=== PATIENT | female | born 1955 | race Caucasian/White ===

== ENCOUNTER 2018-09-05 10:08 | Outpatient (CLI) | payer MEDICARE, MEDICAID ==
[2018-09-05 10:10] VITALS: BP_SYST 134
== END 2018-09-05 10:34 | disposition home or self-care (01) ==
LOC: ORTHO 10:08
PROVIDERS: ATTEND Nurse Practitioner Family
DX: S42.214A Unspecified nondisplaced fracture of surgical neck of right humerus, initial encounter for closed fracture (principal); F17.200 Nicotine dependence, unspecified, uncomplicated; X58.XXXA Exposure to other specified factors, initial encounter; Y93.89 Activity, other specified; Y92.89 Other specified places as the place of occurrence of the external cause; Y99.8 Other external cause status
CPT/HCPCS: 73030; 99213

== ENCOUNTER 2018-09-29 11:27 | Outpatient (CLI) | payer MEDICARE, MEDICAID ==
[2018-09-29 11:33] VITALS: BP 144/109
== END 2018-09-29 12:45 | disposition home or self-care (01) ==
LOC: ORTHO 11:27
PROVIDERS: ATTEND Orthopaedic Surgery
DX: S42.214D Unspecified nondisplaced fracture of surgical neck of right humerus, subsequent encounter for fracture with routine healing (principal); M85.811 Other specified disorders of bone density and structure, right shoulder; Z88.5 Allergy status to narcotic agent; X58.XXXD Exposure to other specified factors, subsequent encounter
CPT/HCPCS: 73030; 99213

== ENCOUNTER 2018-11-10 11:36 | Outpatient (CLI) | payer MEDICARE, MEDICAID ==
[2018-11-10 11:39] VITALS: BP 133/97
== END 2018-11-10 12:50 | disposition home or self-care (01) ==
LOC: ORTHO 11:36
PROVIDERS: ATTEND Orthopaedic Surgery
DX: S42.291D Other displaced fracture of upper end of right humerus, subsequent encounter for fracture with routine healing (principal); F17.200 Nicotine dependence, unspecified, uncomplicated; X58.XXXD Exposure to other specified factors, subsequent encounter
CPT/HCPCS: 73030; 99213